=== PATIENT | male | born 1995 | race Caucasian/White ===

== ENCOUNTER 2020-08-04 14:53 | Emergency (ER) | payer OTHER ==
[2020-08-04] MEDS ORDERED: Lactated Ringers 1,000 ML IV ONE ×2 (14:54→14:55)
[2020-08-04] MEDS ORDERED: ceFAZolin 1 GM Vial IVPUSH ONE (15:04)
[2020-08-04] MEDS ORDERED: Diphtheria,Pertussis(Acell),Tetanus Vaccine 0.5 ML Syringe IM ONE (15:04)
[2020-08-04] MEDS ORDERED: Sodium Chloride 0.9% 10 ML Syringe FLUSH PRN (15:04)
[2020-08-04] MEDS ORDERED: fentaNYL 50 MCG/ML SDV IVPUSH ONE (15:04)
[2020-08-04] MEDS ORDERED: fentaNYL 50 MCG/ML SDV ONE (15:12)
[2020-08-04 15:25] LABS: PTT,PARTIAL THROMBOPLSTIN TIME 23.6 SEC (25.6-32.8)
[2020-08-04] MEDS ORDERED: Lidocaine 1% with EPINEPHrine 1:100,000 20 ML MDV ONE (15:25)
[2020-08-04] MEDS ORDERED: Tranexamic Acid 1,000 MG in Sodium Chloride 0.9% 100 ML IV ONE ×2 (15:26→19:15)
[2020-08-04] MEDS ORDERED: Tranexamic Acid 1,000 MG in Sodium Chloride 0.9% 500 ML IV ONE (15:30)
[2020-08-04 15:31] LABS: CHLORIDE,CL 105 mmol/L (98-107); SODIUM,NA 143 mmol/L (136-145)
[2020-08-04] MEDS ORDERED: HYDROmorphone 1 MG/ML Syringe IVPUSH ONE (15:49)
--- NOTE | 2020-08-04 16:03 | EDM.PDOC ---
ED HPI GENERAL MEDICAL PROBLEM - General Stated Complaint: TRAUMA CODE Time Seen by Provider: 08/04/20 14:53 Source of Information: Reports: Patient History Limitations: Reports: No Limitations - History of Present Illness INITIAL COMMENTS - FREE TEXT/NARRATIVE: Patient comes emergency department today with complaints of a laceration to the distal tip of his right thumb. Just prior to arrival the patient was closing a pocket knife that was brand-new and he sustained a laceration just on the very distal tip of his right thumb. His tetanus immunization is up-to-date. He denies any paresthesias. No Covid exposure no Covid symptoms - Related Data Allergies Allergy/AdvReac Type Severity Reaction Status Date / Time No Known Allergies Allergy Verified 06/27/16 09:52 Home Meds: Home Meds Acetaminophen/HYDROcodone [[place] 325-7.5 MG] 1 tab PO Q6H PRN #12 tablet 06/27/16 [Rx] Clindamycin HCl [Cleocin] 150 mg PO Q8H #21 cap 06/27/16 [Rx] Past Medical History HEENT History: Reports: Other (See Below) Other HEENT History: Multiple right sided tooth fractures secondary to being struck in the face by a horse in 2013. Hx. dental abcess 2014 - Infectious Disease History Infectious Disease History: Reports: Chicken Pox Social & Family History - Caffeine Use Caffeine Use: Reports: Soda Review of Systems - Review of Systems Review Of Systems: Comprehensive ROS is negative, except as noted in HPI. ED EXAM, GENERAL - Physical Exam Exam: See Below Exam Limited By: No Limitations General Appearance: Alert, WD/WN, No Apparent Distress Respiratory/Chest: No Respiratory Distress Cardiovascular: Normal Peripheral Pulses Peripheral Pulses: 2+: Radial (L), Radial (R) Extremities: Other (No active bleeding no other signs of trauma). No: Normal Inspection (Exam is isolated to the right hand. On the distal tip of the distal phalange of the right thumb. The fillet type laceration on the very distal aspect of it this does not traverse into the nail nor the nail bed or matrix. It is rather superficial. It is approximately 2 cm in length. ) Neurological: Alert, Oriented Psychiatric: Normal Affect, Normal Mood Skin Exam: Warm, Dry, Intact, Normal Color ED TRAUMA EXTREMITY PROCEDURES - Laceration/Wound Repair Right Distal Digit - 5th (Baby) Lac/Wound Length In cm: 2 Appearance: Superficial, Linear Distal NVT: Neuro & Vascular Intact Skin Prep: Chlorhexidine (Hibiciens), Saline Closed With: Dermabond Sterile Dressing Applied: None Tetanus Status Addressed: Yes Course - Orders/Labs/Meds Orders: Active Orders 24 hr Category Date Time Status Vaccines to be Administered [RC] PER UNIT ROUTINE Care 08/04/20 15:05 Active DRUG SCREEN, URINE [URCHEM] Stat Lab 08/04/20 15:04 Ordered REFLEX LACTIC ACID YES OR NO [CHEM] Routine Lab 08/04/20 15:49 Received UA RFX ARCHANA AND CULT IF INDIC [URIN] Stat Lab 08/04/20 15:04 Ordered Sodium Chloride 0.9% [Saline Flush] Med 08/04/20 15:04 Active 10 ml FLUSH ASDIRECTED PRN Tranexamic Acid [Cyklokapron] 1,000 mg Med 08/04/20 15:30 Active Sodium Chloride 0.9% [Normal Saline] 500 ml IV ONETIME Peripheral IV Insertion Adult [OM.PC] Stat Oth 08/04/20 15:04 Ordered Medication Orders Tranexamic Acid 1,000 mg/ (Sodium Chloride) 510 mls @ 62.5 mls/hr IV ONETIME ONE Stop: 08/04/20 23:39 Sodium Chloride (Sodium Chloride 0.9% 10 Ml Syringe) 10 ml FLUSH ASDIRECTED PRN PRN Reason: Keep Vein Open Labs: Laboratory Tests 08/04/20 08/04/20 08/04/20 Range/Units 15:01 15:01 15:01 WBC 5.7 (4.0-10.0) x10^3/uL RBC 4.80 (4.5-6.0) x10^6/uL Hgb 15.0 (14.0-18.0) g/dL Hct 41.1 (40.0-52.0) % MCV 85.6 (78.0-93.0) fL MCH 31.3 (26.0-32.0) pg MCHC 36.5 H (32.0-36.0) g/dL RDW Coeff of Jonathan 12.3 (10.0-15.0) % Plt Count 196 (130-400) x10^3/uL Neut % (Auto) 42.8 L (50.0-80.0) % Lymph % (Auto) 46.6 (25.0-50.0) % [place] % (Auto) 8.0 (2.0-11.0) % Eos % (Auto) 2.1 (0.0-4.0) % Baso % (Auto) 0.5 (0.2-1.2) % PT 12.3 (9.9-12.5) SEC INR 1.1 L (2.0-3.5) APTT 23.6 L (25.6-32.8) SEC Sodium 143 (136-145) mmol/L Potassium 3.0 L (3.5-5.1) mmol/L Chloride 105 (98-107) mmol/L Carbon Dioxide 24 (21-32) mmol/L Anion Gap 17.0 H (5-15) mmol/L BUN 13 (7-18) mg/dL Creatinine 1.3 (0.70-1.30) mg/dL Est Cr Clr Drug Dosing TNP Estimated GFR (MDRD) > 60 Glucose 120 H (70-99) mg/dL Lactic Acid (0.4-2.0) mmol/L Calcium 9.0 (8.5-10.1) mg/dL Corrected Calcium 9.24 (8.5-10.1) mg/dL Total Bilirubin 0.6 (0.2-1.0) mg/dL AST 17 (15-37) U/L ALT 31 (16-63) U/L Alkaline Phosphatase 44 L (46-116) U/L Total Protein 6.6 (6.4-8.2) g/dL Albumin 3.7 (3.4-5.0) g/dL Globulin 2.9 Albumin/Globulin Ratio 1.28 Ethyl Alcohol < 3 (0-3) mg/dL 08/04/20 Range/Units 15:01 WBC (4.0-10.0) x10^3/uL RBC (4.5-6.0) x10^6/uL Hgb (14.0-18.0) g/dL Hct (40.0-52.0) % MCV (78.0-93.0) fL MCH (26.0-32.0) pg MCHC (32.0-36.0) g/dL RDW Coeff of Jonathan (10.0-15.0) % Plt Count (130-400) x10^3/uL Neut % (Auto) (50.0-80.0) % Lymph % (Auto) (25.0-50.0) % [place] % (Auto) (2.0-11.0) % Eos % (Auto) (0.0-4.0) % Baso % (Auto) (0.2-1.2) % PT (9.9-12.5) SEC INR (2.0-3.5) APTT (25.6-32.8) SEC Sodium (136-145) mmol/L Potassium (3.5-5.1) mmol/L Chloride (98-107) mmol/L Carbon Dioxide (21-32) mmol/L Anion Gap (5-15) mmol/L BUN (7-18) mg/dL Creatinine (0.70-1.30) mg/dL Est Cr Clr Drug Dosing Estimated GFR (MDRD) Glucose (70-99) mg/dL Lactic Acid 4.8 H* (0.4-2.0) mmol/L Calcium (8.5-10.1) mg/dL Corrected Calcium (8.5-10.1) mg/dL Total Bilirubin (0.2-1.0) mg/dL AST (15-37) U/L ALT (16-63) U/L Alkaline Phosphatase (46-116) U/L Total Protein (6.4-8.2) g/dL Albumin (3.4-5.0) g/dL Globulin Albumin/Globulin Ratio Ethyl Alcohol (0-3) mg/dL Meds: Medications Generic Name Dose Route Start Last Admin Trade Name Freq PRN Reason Stop Dose Admin Tranexamic Acid 1,000 mg/ 510 mls @ 62.5 mls/hr 08/04/20 15:30 Sodium Chloride IV 08/04/20 23:39 ONETIME ONE Sodium Chloride 10 ml 08/04/20 15:04 Sodium Chloride 0.9% 10 Ml Syringe FLUSH ASDIRECTED PRN Keep Vein Open Discontinued Medications Generic Name Dose Route Start Last Admin Trade Name Freq PRN Reason Stop Dose Admin Cefazolin Sodium 2 gm 08/04/20 15:04 Cefazolin 1 Gm Vial IVPUSH 08/04/20 15:05 ONETIME ONE Diphtheria/Tetanus/Acell Pertussis 0.5 ml 08/04/20 15:04 08/04/20 15:45 Diphtheria,Pertussis(Acell),Tetanus Vaccine 0.5 Ml Syringe IM 08/04/20 15:05 0.5 ml .ONCE ONE Administration Fentanyl Confirm 08/04/20 15:12 Fentanyl 50 Mcg/Ml Sdv Administered 08/04/20 15:13 Dose 50 mcg .ROUTE .STK-MED ONE Fentanyl 50 mcg 08/04/20 15:04 Fentanyl 50 Mcg/Ml Sdv IVPUSH 08/04/20 15:05 ONETIME ONE Hydromorphone HCl 1 mg 08/04/20 15:49 Hydromorphone 1 Mg/Ml Syringe IVPUSH 08/04/20 15:50 ONETIME ONE Lidocaine/Epinephrine Confirm 08/04/20 15:25 Lidocaine 1% With Epinephrine 1:100,000 20 Ml Mdv Administered 08/04/20 15:26 Dose 20 ml .ROUTE .STK-MED ONE Departure - Departure Time of Disposition: 15:35 Disposition: DC/Tfer to [facility] 02 Clinical Impression: Contact with chainsaw as cause of accidental injury Laceration of forearm, complicated Qualifiers: Encounter type: initial encounter Laterality: left Qualified Code(s): S51.812A - Laceration without foreign body of left forearm, initial encounter - Discharge Information Forms: Interfacility Transfer EMTALA - My Orders Last 24 Hours: My Active Orders 08/04/20 15:04 DRUG SCREEN, URINE [URCHEM] Stat UA RFX ARCHANA AND CULT IF INDIC [URIN] Stat Sodium Chloride 0.9% [Saline Flush] 10 ml FLUSH ASDIRECTED PRN Peripheral IV Insertion Adult [OM.PC] Stat 08/04/20 15:05 Vaccines to be Administered [RC] PER UNIT ROUTINE 08/04/20 15:30 Tranexamic Acid [Cyklokapron] 1,000 mg Sodium Chloride 0.9% [Normal Saline] 500 ml IV ONETIME 08/04/20 15:49 REFLEX LACTIC ACID YES OR NO [CHEM] Routine - Assessment/Plan Last 24 Hours: My Active Orders 08/04/20 15:04 DRUG SCREEN, URINE [URCHEM] Stat UA RFX ARCHANA AND CULT IF INDIC [URIN] Stat Sodium Chloride 0.9% [Saline Flush] 10 ml FLUSH ASDIRECTED PRN Peripheral IV Insertion Adult [OM.PC] Stat 08/04/20 15:05 Vaccines to be Administered [RC] PER UNIT ROUTINE 08/04/20 15:30 Tranexamic Acid [Cyklokapron] 1,000 mg Sodium Chloride 0.9% [Normal Saline] 500 ml IV ONETIME 08/04/20 15:49 REFLEX LACTIC ACID YES OR NO [CHEM] Routine
--- NOTE | 2020-08-04 16:17 | CR ---
[id number] RAD/RAD Forearm Left 2V Exam: RAD Forearm Left 2V Indication:TRAUMA CHAIN SAW TO ARM. Comparison: No prior imaging for comparison. Discussion/Impression: Soft tissue laceration along the distal forearm. No fracture or retained foreign bodies. Hermes Cummings MD 08/04/20 [id number] Thank you for allowing us to participate in the care of your patient.
--- NOTE | 2020-08-04 17:39 | EDM.PDOC ---
ED HPI GENERAL MEDICAL PROBLEM - General Stated Complaint: TRAUMA CODE Time Seen by Provider: 08/04/20 14:53 Source of Information: Reports: Patient History Limitations: Reports: No Limitations - History of Present Illness INITIAL COMMENTS - FREE TEXT/NARRATIVE: PPatient comes emergency department today by ambulance after sustaining a chainsaw injury to the left forearm. Just prior to arrival the patient was in a boom truck cutting trees when the chainsaw slipped and cut him on the left volar surface of the mid left forearm. There was quite a bit of bleeding on the scene and they had attempted to apply a tourniquet. No syncope. He is unsure of when his last tetanus shot was. He does complain of some paresthesias to his thumb and 2nd finger of his left hand. Otherwise no other paresthesias. No other trauma to left upper extremity. He is not on any anticoagulants. - Related Data Allergies Allergy/AdvReac Type Severity Reaction Status Date / Time No Known Allergies Allergy Verified 06/27/16 09:52 Home Meds: Home Meds Acetaminophen/HYDROcodone [[place] 325-7.5 MG] 1 tab PO Q6H PRN #12 tablet 06/27/16 [Rx] Clindamycin HCl [Cleocin] 150 mg PO Q8H #21 cap 06/27/16 [Rx] Past Medical History HEENT History: Reports: Other (See Below) Other HEENT History: Multiple right sided tooth fractures secondary to being struck in the face by a horse in 2013. Hx. dental abcess 2014 - Infectious Disease History Infectious Disease History: Reports: Chicken Pox Social & Family History - Caffeine Use Caffeine Use: Reports: Soda Review of Systems - Review of Systems Review Of Systems: Comprehensive ROS is negative, except as noted in HPI. ED EXAM, GENERAL - Physical Exam Exam: See Below Exam Limited By: No Limitations General Appearance: Alert, WD/WN, No Apparent Distress Ears: Normal External Exam Nose: Normal Inspection, Normal Mucosa Throat/Mouth: Normal Inspection, Normal Lips, Normal Teeth, Normal Oropharynx, Normal Voice, No Airway Compromise Head: Atraumatic, Normocephalic Neck: Normal Inspection, Supple, Non-Tender Respiratory/Chest: No Respiratory Distress, Lungs Clear, Normal Breath Sounds, No Accessory Muscle Use Cardiovascular: Normal Peripheral Pulses, Regular Rate, Rhythm Peripheral Pulses: 0: Radial (L) (Ulnar pulse no radial pulse ), 2+: Brachial (L), Brachial (R), Radial (R) GI/Abdominal: Normal Bowel Sounds, Soft, Non-Tender (Male) Exam: Deferred Rectal (Males) Exam: Deferred Back Exam: Normal Inspection, Full Range of Motion Extremities: Normal Capillary Refill, Other (There is arterial bleeding from the left radial artery region. There is multiple areas of tendon involvement. As well as muscle fascia. Ulnar pulse intact to the arm is atraumatic good CMS to the distal hand. He is able to flex and extend the fingers appropriately.). No: Normal Inspection (There is a large gaping jagged laceration of the left volar surface of the forearm approximately 5 inches from the wrist. This is a transverse very open laceration that is approximately 4 to 5 cm transversely and distal approximately 3 cm into the subcutaneous tissue as well as the muscle. ) Neurological: Alert, Oriented Psychiatric: Normal Affect, Normal Mood Skin Exam: Warm, Dry, Intact, Normal Color Course - Orders/Labs/Meds Orders: Active Orders 24 hr Category Date Time Status Vaccines to be Administered [RC] PER UNIT ROUTINE Care 08/04/20 15:05 Active DRUG SCREEN, URINE [URCHEM] Stat Lab 08/04/20 15:04 Ordered REFLEX LACTIC ACID YES OR NO [CHEM] Routine Lab 08/04/20 15:49 Received UA RFX ARCHANA AND CULT IF INDIC [URIN] Stat Lab 08/04/20 15:04 Ordered Sodium Chloride 0.9% [Saline Flush] Med 08/04/20 15:04 Active 10 ml FLUSH ASDIRECTED PRN Tranexamic Acid [Cyklokapron] 1,000 mg Med 08/04/20 15:30 Active Sodium Chloride 0.9% [Normal Saline] 500 ml IV ONETIME Peripheral IV Insertion Adult [OM.PC] Stat Oth 08/04/20 15:04 Ordered Medication Orders Tranexamic Acid 1,000 mg/ (Sodium Chloride) 510 mls @ 62.5 mls/hr IV ONETIME ONE Stop: 08/04/20 23:39 Sodium Chloride (Sodium Chloride 0.9% 10 Ml Syringe) 10 ml FLUSH ASDIRECTED PRN PRN Reason: Keep Vein Open Labs: Laboratory Tests 08/04/20 08/04/20 08/04/20 Range/Units 15:01 15: 15:01 WBC 5.7 (4.0-10.0) x10^3/uL RBC 4.80 (4.5-6.0) x10^6/uL Hgb 15.0 (14.0-18.0) g/dL Hct 41.1 (40.0-52.0) % MCV 85.6 (78.0-93.0) fL MCH 31.3 (26.0-32.0) pg MCHC 36.5 H (32.0-36.0) g/dL RDW Coeff of Jonathan 12.3 (10.0-15.0) % Plt Count 196 (130-400) x10^3/uL Neut % (Auto) 42.8 L (50.0-80.0) % Lymph % (Auto) 46.6 (25.0-50.0) % [place] % (Auto) 8.0 (2.0-11.0) % Eos % (Auto) 2.1 (0.0-4.0) % Baso % (Auto) 0.5 (0.2-1.2) % PT 12.3 (9.9-12.5) SEC INR 1.1 L (2.0-3.5) APTT 23.6 L (25.6-32.8) SEC Sodium 143 (136-145) mmol/L Potassium 3.0 L (3.5-5.1) mmol/L Chloride 105 (98-107) mmol/L Carbon Dioxide 24 (21-32) mmol/L Anion Gap 17.0 H (5-15) mmol/L BUN 13 (7-18) mg/dL Creatinine 1.3 (0.70-1.30) mg/dL Est Cr Clr Drug Dosing TNP Estimated GFR (MDRD) > 60 Glucose 120 H (70-99) mg/dL Lactic Acid (0.4-2.0) mmol/L Calcium 9.0 (8.5-10.1) mg/dL Corrected Calcium 9.24 (8.5-10.1) mg/dL Total Bilirubin 0.6 (0.2-1.0) mg/dL AST 17 (15-37) U/L ALT 31 (16-63) U/L Alkaline Phosphatase 44 L (46-116) U/L Total Protein 6.6 (6.4-8.2) g/dL Albumin 3.7 (3.4-5.0) g/dL Globulin 2.9 Albumin/Globulin Ratio 1.28 Ethyl Alcohol < 3 (0-3) mg/dL 08/04/20 Range/Units 15:01 WBC (4.0-10.0) x10^3/uL RBC (4.5-6.0) x10^6/uL Hgb (14.0-18.0) g/dL Hct (40.0-52.0) % MCV (78.0-93.0) fL MCH (26.0-32.0) pg MCHC (32.0-36.0) g/dL RDW Coeff of Jonathan (10.0-15.0) % Plt Count (130-400) x10^3/uL Neut % (Auto) (50.0-80.0) % Lymph % (Auto) (25.0-50.0) % [place] % (Auto) (2.0-11.0) % Eos % (Auto) (0.0-4.0) % Baso % (Auto) (0.2-1.2) % PT (9.9-12.5) SEC INR (2.0-3.5) APTT (25.6-32.8) SEC Sodium (136-145) mmol/L Potassium (3.5-5.1) mmol/L Chloride (98-107) mmol/L Carbon Dioxide (21-32) mmol/L Anion Gap (5-15) mmol/L BUN (7-18) mg/dL Creatinine (0.70-1.30) mg/dL Est Cr Clr Drug Dosing Estimated GFR (MDRD) Glucose (70-99) mg/dL Lactic Acid 4.8 H* (0.4-2.0) mmol/L Calcium (8.5-10.1) mg/dL Corrected Calcium (8.5-10.1) mg/dL Total Bilirubin (0.2-1.0) mg/dL AST (15-37) U/L ALT (16-63) U/L Alkaline Phosphatase (46-116) U/L Total Protein (6.4-8.2) g/dL Albumin (3.4-5.0) g/dL Globulin Albumin/Globulin Ratio Ethyl Alcohol (0-3) mg/dL Meds: Medications Generic Name Dose Route Start Last Admin Trade Name Freq PRN Reason Stop Dose Admin Tranexamic Acid 1,000 mg/ 510 mls @ 62.5 mls/hr 08/04/20 15:30 Sodium Chloride IV 08/04/20 23:39 ONETIME ONE Sodium Chloride 10 ml 08/04/20 15:04 Sodium Chloride 0.9% 10 Ml Syringe FLUSH ASDIRECTED PRN Keep Vein Open Discontinued Medications Generic Name Dose Route Start Last Admin Trade Name Freq PRN Reason Stop Dose Admin Cefazolin Sodium 2 gm 08/04/20 15:04 Cefazolin 1 Gm Vial IVPUSH 08/04/20 15:05 ONETIME ONE Diphtheria/Tetanus/Acell Pertussis 0.5 ml 08/04/20 15:04 08/04/20 15:45 Diphtheria,Pertussis(Acell),Tetanus Vaccine 0.5 Ml Syringe IM 08/04/20 15:05 0.5 ml .ONCE ONE Administration Fentanyl Confirm 08/04/20 15:12 Fentanyl 50 Mcg/Ml Sdv Administered 08/04/20 15:13 Dose 50 mcg .ROUTE .STK-MED ONE Fentanyl 50 mcg 08/04/20 15:04 Fentanyl 50 Mcg/Ml Sdv IVPUSH 08/04/20 15:05 ONETIME ONE Hydromorphone HCl 1 mg 08/04/20 15:49 Hydromorphone 1 Mg/Ml Syringe IVPUSH 08/04/20 15:50 ONETIME ONE Lidocaine/Epinephrine Confirm 08/04/20 15:25 Lidocaine 1% With Epinephrine 1:100,000 20 Ml Mdv Administered 08/04/20 15:26 Dose 20 ml .ROUTE .STK-MED ONE - Re-Assessments/Exams Free Text/Narrative Re-Assessment/Exam: 08/04/20 17:43 Due to the mechanism of injury a trauma code was activated prior to the patient arrival and was present on the patients arrival as well. This is a rather large impressive laceration on the volar surface of the left forearm. There is noted arterial pulsating bleeding of the left radial region. Initially to control the arterial bleeding a tourniquet was placed approximately 3 inches above the site of the injury. We are able to control the arterial bleeding. Patient was given fentanyl for pain as well as TXA. Ancef 2 grams IVP. 1 liter LR bolus. I was able to remove the tourniquet and identify the radial artery and was able to tie this off with a vicryl suture and the had was still perfused. A couple other small bleeders were also tied off. Total tourniquet time was aprox 20 minutes. The wound was cleansed with sterile saline dressing applied. I called and spoke with Dr. Dc at [facility] in the ED. HPI ER COURSE findings and concerns wer relayed to him verbally over the phone. His questions were answered and he was accepted at [facility]. Departure - Departure Time of Disposition: 15:35 Disposition: DC/Tfer to [facility] 02 Clinical Impression: Contact with chainsaw as cause of accidental injury Laceration of forearm, complicated Qualifiers: Encounter type: initial encounter Laterality: left Qualified Code(s): S51.812A - Laceration without foreign body of left forearm, initial encounter - Discharge Information Referrals: aCrlos A Brush PA-C [Primary Care Provider] - Forms: Interfacility Transfer EMTALA - My Orders Last 24 Hours: My Active Orders 08/04/20 15:04 DRUG SCREEN, URINE [URCHEM] Stat UA RFX ARCHANA AND CULT IF INDIC [URIN] Stat Sodium Chloride 0.9% [Saline Flush] 10 ml FLUSH ASDIRECTED PRN Peripheral IV Insertion Adult [OM.PC] Stat 08/04/20 15:05 Vaccines to be Administered [RC] PER UNIT ROUTINE 08/04/20 15:30 Tranexamic Acid [Cyklokapron] 1,000 mg Sodium Chloride 0.9% [Normal Saline] 500 ml IV ONETIME 08/04/20 15:49 REFLEX LACTIC ACID YES OR NO [CHEM] Routine - Assessment/Plan Last 24 Hours: My Active Orders 08/04/20 15:04 DRUG SCREEN, URINE [URCHEM] Stat UA RFX ARCHANA AND CULT IF INDIC [URIN] Stat Sodium Chloride 0.9% [Saline Flush] 10 ml FLUSH ASDIRECTED PRN Peripheral IV Insertion Adult [OM.PC] Stat 08/04/20 15:05 Vaccines to be Administered [RC] PER UNIT ROUTINE 08/04/20 15:30 Tranexamic Acid [Cyklokapron] 1,000 mg Sodium Chloride 0.9% [Normal Saline] 500 ml IV ONETIME 04/28/21 15:49 REFLEX LACTIC ACID YES OR NO [CHEM] Routine
[2020-08-04] MEDS ORDERED: Lidocaine 1% with EPINEPHrine 1:100,000 20 ML MDV INFILT PRN (19:15)
== END 2020-08-04 16:05 | disposition short-term general hospital (02) ==
LOC: VM.ED 14:53
DX: S55.112A Laceration of radial artery at forearm level, left arm, initial encounter (principal); S51.812A Laceration without foreign body of left forearm, initial encounter; W29.3XXA Contact with powered garden and outdoor hand tools and machinery, initial encounter; Z23 Encounter for immunization
CPT/HCPCS: 12001; 36415; 73090-LT; 80053; 80307; 83605; 85025; 85610; 85730; 90471; 90715; 93005; 96365; 96375; 99285; 99285-25; J0690; J1170; J3010; J7040; J7120

== ENCOUNTER 2022-03-18 20:46 | Emergency (ER) | payer MEDICAID, OTHER ==
[2022-03-18 21:28] VITALS: BP 127/91; PULSE 73
== END 2022-03-18 21:15 | disposition home or self-care (01) ==
LOC: VM.ED 20:46
DX: S61.210A Laceration without foreign body of right index finger without damage to nail, initial encounter (principal); W26.0XXA Contact with knife, initial encounter
CPT/HCPCS: 12001; 99282; 99283

== ENCOUNTER 2023-02-19 07:50 | Emergency (ER) | payer MEDICAID ==
[2023-02-19 08:04] VITALS: BP 102/63; PULSE 70
== END 2023-02-19 08:30 | disposition home or self-care (01) ==
LOC: VM.ED 07:50
DX: H66.92 Otitis media, unspecified, left ear (principal)
CPT/HCPCS: 99282